=== PATIENT | male | born 1960 | race Caucasian/White ===

== ENCOUNTER → 2023-09-04 11:21 | Outpatient (REF) | payer OTHER, SELFPAY | LOC: DHCBC/DCA 11:21 | PROVIDERS: ATTENDING PHYSICIAN Internal Medicine Cardiovascular Disease; FAMILY PHYSICIAN Family Medicine | DX: I48.91 Unspecified atrial fibrillation (principal) | CPT/HCPCS: 78452; 93017; A9500 ==

== ENCOUNTER → 2023-10-06 22:00 | Outpatient (REF) | payer OTHER, SELFPAY | LOC: DHSLP 22:00 | PROVIDERS: ATTENDING PHYSICIAN Internal Medicine Cardiovascular Disease; FAMILY PHYSICIAN Family Medicine | DX: G47.33 Obstructive sleep apnea (adult) (pediatric) (principal) | CPT/HCPCS: 95800 ==

== ENCOUNTER 2025-03-19 01:58 | Emergency (ER) | payer OTHER, SELFPAY ==
[2025-03-19 02:00] VITALS: BP 138/82
[2025-03-19] MEDS: TORADOL 30 MG IV (02:45)
[2025-03-19] MEDS: ZOFRAN 4 MG IV (02:45)
[2025-03-19 02:47] LABS: Hematocrit 35.1 % (39.0-52.0); Hemoglobin 12.4 g/dL (13.0-18.0); Mean Corp Hgb Conc. 35.3 g/dL (33.0-37.0); Mean Corpuscular Volume 90.5 fL (80.0-94.0); Nucleated Red Blood Cells % 0 % (-); Platelet Count 190 10^3/uL (130-400); Red Cell Dist. Width 16.7 % (11.5-14.5)
--- NOTE | 2025-03-19 02:51 | ED.GENMED ---
History of Present Illness
<Rolf Huitron MD, Resident - Last Filed: 03/19/25 05:28>
General
Chief Complaint: Flank Pain
Source: patient and spouse
Time Seen by Provider: 03/19/25 02:30
History of Present Illness
History of Present Illness:
Patient is a 64-year-old male who presents to the emergency department with acute left abdominal and flank pain with several episodes of vomiting that started at 2330 this evening. He has a past medical history of stage IV thyroid cancer, atrial
fibrillation, hyperlipidemia, hiatal hernia, prostatic hypertrophy, and hypertension. The patient was in his normal state of health while attending a wedding before the symptoms began. He had not eaten or drink much but he did have a rum and coke.
Around the time that he was going to head home with his he started to have nausea and began to throw up. Along with the nausea and vomiting he has had abdominal pain that was located on the left side that radiated to his left flank. Once he
finished emptying his stomach contents he continued to dry heave in pain. He cannot recall the last time he urinated and states that the last time he urinated there was no foul odor or color to it. Of any shortness of breath, chest tightness, or
signs of syncope. Patient is visibly uncomfortable in the room and request for pain management in between bouts of nausea.
Past History
<Rolf Huitron MD, Resident - Last Filed: 03/19/25 05:28>
Past History
ED Past Medical History: Arrthythmia and Hypercholesterolemia
Social History
Tobacco: Non-smoker
Alcohol: None
Review of Systems
<Rolf Huitron MD, Resident - Last Filed: 03/19/25 05:28>
Review of Systems
Constitutional: Reports no symptoms
EENT: Reports no symptoms
Respiratory: Reports no symptoms
Cardiac: Reports no symptoms
ABD/GI: Reports abdominal pain (Left sided abdominal pain that radiates to the Left Flank) and vomiting
: Reports flank pain (Left sided abdominal pain that radiates to the Left Flank)
Musculoskeletal: Reports no symptoms
Skin: Reports no symptoms
Neurological: Reports no symptoms
Endocrine: Reports no symptoms
Hematologic/Lymphatic: Reports no symptoms
Psychiatric: Reports no symptoms
Phy Exam
<Rolf Huitron MD, Resident - Last Filed: 03/19/25 05:28>
General Physical Exam
General Presentation: severe distress
General age: appears stated age
General Skin: warm and dry
General Habitus: normal
General Mental: alert
General Hydration: appears well hydrated
Cardiovascular Exam
Cardiovascular Exam: regular rate/rhythm, no edema, no gallop, no JVD and no murmur
Pulmonary Exam
Pulmonary Exam: lungs clear, no respiratory distress, no rales, chest non tender, no crackles, no rhonchi, no stridor, no wheezing and no cough
Musculoskeletal Exam
Musculoskeletal Exam: full ROM
Skin Exam
Skin Exam: normal color, warm/dry, no rash and no petechia
Psychiatric Exam
Psychiatric Exam: normal mood/affect
Course
<Rolf Huitron MD, Resident - Last Filed: 03/19/25 05:28>
Orders/Labs/Results
Orders:
Orders
03/19/25 02:24
IV Insert/Care/Rem.- Treatment PRN
03/19/25 02:33
Complete Blood Count/With Diff Urgent
Comprehensive Metabolic Panel Urgent
Lipase Urgent
03/19/25 02:40
Ketorolac [Toradol] 30 mg IV NOW STA
Ondansetron Injectable [Zofran] 4 mg IV NOW STA
03/19/25 02:48
Bladder Scan- Treatment ONCE
03/19/25 02:57
CT Abd/pel Without Iv Or Oral Urgent
Comment:
Reason For Exam: L flank pain with nausea and vomiting
03/19/25 03:04
Urinalysis Reflex To Culture Urgent
Date Specimen was Collected: 03/19/25
Time Specimen was Collected: 02:24
Urine Microscopic Reflex Cult Urgent
Urine Culture Urgent
SAVI Source: U
Specimen Description:
Date Specimen was Collected: 03/19/25
Time Specimen was Collected: 02:24
03/19/25 03:24
0.9% Sodium Chloride 1000 ml [Nss] 1,000 ml IV BOLUS
HYDROmorphone [Dilaudid] 0.5 mg IV NOW STA
03/19/25 04:57
Oxycodone/Acetaminophen [Percocet 5/325] 1 tablet PO NOW STA
Abnormal Lab Results
03/19/25 03/19/25
02:33 03:04
RBC 3.88 L 10^6/uL
(4.70-6.10)
Hgb 12.4 L g/dL
(13.0-18.0)
Hct 35.1 L %
(39.0-52.0)
MCH 32.0 H pg
(27.0-31.0)
RDW 16.7 H %
(11.5-14.5)
Absolute Neuts (auto) 7.1 H 10^3/uL
(1.4-6.5)
Absolute Lymphs (auto) 0.4 L 10^3/uL
(1.2-3.4)
Neutrophils % 88.0 H %
(42.2-75.2)
Lymphocytes % 4.9 L %
(20.5-51.1)
BUN 21 H mg/dl
(9-20)
Glucose 138 H mg/dl
(70-99)
Urine Ketones 3+ A
(Negative)
Ur Occult Blood Reflex 4+ A
(Negative)
Leukocyte Esterase Rfl 1+ A
(Negative)
Urine RBC >100 A /HPF
(0-2)
Urine Albumin (Reflex) 3+ A
(Neg - Trace)
03/19/25 02:33
03/19/25 02:33
Vital Signs
Initial and Last Documented VS:
Initial Vital Signs
Pulse Resp BP Pulse Ox
98 26 138/82 98
03/19/25 02:00 03/19/25 02:00 03/19/25 02:00 03/19/25 02:00
Last Documented Vital Signs
Temp Pulse Resp BP Pulse Ox
98.7 F 82 16 114/76 95
03/19/25 04:41 03/19/25 04:41 03/19/25 04:41 03/19/25 04:41 03/19/25 04:41
<Masha Fallon DO - Last Filed: 03/19/25 07:41>
Orders/Labs/Results
Orders:
Orders
03/19/25 02:24
IV Insert/Care/Rem.- Treatment PRN
03/19/25 02:33
Complete Blood Count/With Diff Urgent
Comprehensive Metabolic Panel Urgent
Lipase Urgent
03/19/25 02:40
Ketorolac [Toradol] 30 mg IV NOW STA
Ondansetron Injectable [Zofran] 4 mg IV NOW STA
03/19/25 02:48
Bladder Scan- Treatment ONCE
03/19/25 02:57
CT Abd/pel Without Iv Or Oral Urgent
Comment:
Reason For Exam: L flank pain with nausea and vomiting
03/19/25 03:04
Urinalysis Reflex To Culture Urgent
Date Specimen was Collected: 03/19/25
Time Specimen was Collected: 02:24
Urine Microscopic Reflex Cult Urgent
Urine Culture Urgent
SAVI Source: U
Specimen Description:
Date Specimen was Collected: 03/19/25
Time Specimen was Collected: 02:24
03/19/25 03:24
0.9% Sodium Chloride 1000 ml [Nss] 1,000 ml IV BOLUS
HYDROmorphone [Dilaudid] 0.5 mg IV NOW STA
03/19/25 04:57
Oxycodone/Acetaminophen [Percocet 5/325] 1 tablet PO NOW STA
Abnormal Lab Results
03/19/25 03/19/25
02:33 03:04
RBC 3.88 L 10^6/uL
(4.70-6.10)
Hgb 12.4 L g/dL
(13.0-18.0)
Hct 35.1 L %
(39.0-52.0)
MCH 32.0 H pg
(27.0-31.0)
RDW 16.7 H %
(11.5-14.5)
Absolute Neuts (auto) 7.1 H 10^3/uL
(1.4-6.5)
Absolute Lymphs (auto) 0.4 L 10^3/uL
(1.2-3.4)
Neutrophils % 88.0 H %
(42.2-75.2)
Lymphocytes % 4.9 L %
(20.5-51.1)
BUN 21 H mg/dl
(9-20)
Glucose 138 H mg/dl
(70-99)
Urine Ketones 3+ A
(Negative)
Ur Occult Blood Reflex 4+ A
(Negative)
Leukocyte Esterase Rfl 1+ A
(Negative)
Urine RBC >100 A /HPF
(0-2)
Urine Albumin (Reflex) 3+ A
(Neg - Trace)
03/19/25 02:33
03/19/25 02:33
Vital Signs
Initial and Last Documented VS:
Initial Vital Signs
Pulse Resp BP Pulse Ox
98 26 138/82 98
03/19/25 02:00 03/19/25 02:00 03/19/25 02:00 03/19/25 02:00
Last Documented Vital Signs
Temp Pulse Resp BP Pulse Ox
98.7 F 82 16 114/76 95
03/19/25 04:41 03/19/25 04:41 03/19/25 04:41 03/19/25 04:41 03/19/25 04:41
<Rolf Huitron MD, Resident - Last Filed: 03/19/25 05:28>
*Pulse Oximetry
SaO2: 98
Oxygen Mode of Delivery: Room air
<Masha Fallon, DO - Last Filed: 03/19/25 07:41>
*Radiology
Radiology exam reviewed: radiology read reviewed
*Pulse Oximetry
Patient hypoxic: no
*Critical Care Note
Total Time (30-74mins, 75-104mins- exclusive of procedures): Not Applicable
<Rolf Huitron MD, Resident - Last Filed: 03/19/25 05:28>
Update Note
Update Note:
Problem List:
Left abdominal/flank pain
nausea and vomiting
Plan:
CBC and CMP
lipase
Toradol for analgesia
Zofran as antiemetic
bladder scan
CT abdomen and pelvis without IV or oral contrast
urine analysis with reflex to culture
Differential Diagnoses:
nephrolithiasis
pyelonephritis
UTI
pancreatitis
gastroenteritis
Radiology:
CT of the abdomen and pelvis without contrast ordered on 03/19/2025: Left hydronephrosis and hydroureter due to an obstructing 2 mm stone at the left ureterovesical junction.
EKG: Not applicable
Labs:
CBC notable for anemia with a hemoglobin of 12.4, and a neutrophil percentile of 88%
CMP unremarkable
lipase within normal limits
urinalysis with 3+ ketones, 4+ occult blood, 1+ leukocyte esterase, greater than 100 urine RBCs per high-powered field, and calcium oxalate crystals present
Updates:
based on history, physical exam and imaging findings the patient has hydroureter secondary to nephrolithiasis of the left ureter
stone is 2 mm in size which should be able to be passed within the urine.
Patient much more comfortable after receiving ketolorac
patient given Dilaudid and pain has greatly improved
Patient will be sent home with prescription for analgesia and antiemetic.
Patient should follow-up with his primary care provider within 1 week following discharge.
Patient would like to be discharged from the emergency department. There are no barriers that would impede the patient from being safely discharged at the present time.
ED Attending Note
<Rolf Huitron MD, Resident - Last Filed: 03/19/25 05:28>
-
Portions of this chart may have been created with voice recognition software.� Occasional wrong word or��sound alike� substitutions may have occurred due to the inherent limitations of voice recognition software.
<Masha Fallon DO - Last Filed: 03/19/25 07:41>
ED Attending Note
Patient seen and examined by attending physician: Yes
I performed a history and physical exam of patient and discussed management with resident, I reviewed resident's note and agree with documented findings and plan of care.: Yes
ED Attending Note:
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 Follows with oncologist at [facility] and has undergone local radiation to his
thoracic spine and right hip as well as surgical excision of both.
The patient reports experiencing a sudden onset of intense left back/flank pain that radiates to his left lower quadrant. No history of similar episodes of pain. 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 Associated with nausea
and several episodes of dry heaves. The patient denies experiencing any testicular pain. Fever and or chills. No dysuria and urgency and or hematuria.
He admits to feeling restless, unable to find a comfortable position.
Currently much more comfortable after an IV dose of Toradol and Zofran.
64-year-old gentleman appears his stated age, bright and alert, pleasant, appears in no acute distress.
Heart is regular rate and rhythm.
Lungs are clear to auscultation.
Abdomen is soft without appreciable tenderness. There is mild left CVA tenderness to percussion.
The Differential Diagnosis includes, in no particular order and is not limited to:
1. Metastatic bone pain
2. Vertebral fracture
3. Nephrolithiasis (kidney stone)
4. Spinal cord compression
5. Soft tissue invasion by carcinoma
6. Post-operative pain
7. Musculoskeletal pain due to cancer replacement
8. Pain related to cancer treatment side effects
9. Acute kidney injury
10. Infection or abscess related to surgery
Labs are unremarkable.
Urinalysis is pending.
Will plan for CT abdomen pelvis.
Will give an IV dose of Dilaudid for pain.
04:50
Patient is near pain-free after IV Dilaudid, overall resting comfortably, no return of nausea.
CAT scan shows a 2 mm stone left UVJ with mild hydronephrosis.
Urinalysis shows microscopic hematuria. No evidence of infection.
Will discharge to home with a prescription for Percocet for as needed pain, Zofran for as needed nausea and a short course of Flomax.
Discussed importance of staying well-hydrated on a daily basis.
Follow-up with urology especially if stone has not passed within the next week.
Return precautions discussed.
Discharge Plan
Departure
Patient Disposition: Home (Routine Discharge)
Date of Disposition: 03/19/25
Time of Disposition: 04:50
Patient with high blood pressure during this ER visit?: No
Condition: Good
Discharge Problem:
Calculus of distal left ureter
Instructions: Kidney Stones (DC), Flank Pain (DC), How to Strain Your Urine
Prescriptions:
New
tamsulosin [Flomax] 0.4 mg capsule
0.4 mg PO DAILY Qty: 7 0RF
ondansetron 4 mg tablet,disintegrating
4 mg PO TIDPRN PRN (Reason: nausea/vomiting) Qty: 18 0RF
oxycodone-acetaminophen [Percocet] 5-325 mg Tablet
1 tab PO Q4HPRN PRN (Reason: pain) Qty: 6 0RF
No Action
citalopram 20 mg Tablet
20 mg PO QPM
Eliquis 5 mg Tablet
5 mg PO BID
metoprolol succinate [Toprol XL] 25 mg tablet extended release 24 hr
25 mg PO HS
atorvastatin 40 mg Tablet
40 mg PO DAILY
magnesium Tablet
1 tab PO DAILY
Referrals:
René Hirsch MD [Family Provider]
Sachin Aguayo MD [Active, Urology] - As needed
Interventions
Interventions:
*Risk Screen - Suicide Last Done: 03/19/25 02:00
*General Assessment Last Done: 03/19/25 03:14
*Neglect/Abuse Screening Last Done: 03/19/25 02:00
*ED- Fall Risk Assessment Last Done: 03/19/25 03:14
*ED COVID-19 Vaccine History Last Done: 03/19/25 03:14
*Nursing Disposition Last Done: 03/19/25 05:09
IO-Ilandz-Nqlqiuqevx Assessment Last Done: 03/19/25 03:14
ED-Male Genitourinary Assessment Last Done: 03/19/25 03:14
Discharge Date and Time
Discharge Date/Time: 03/19/25 05:15
Print Language: EQUATORIAL GUINEAN
[2025-03-19 03:01] LABS: ALT (SGPT) 35 U/L (0-50); AST (SGOT) 34 U/L (17-59); Albumin 4.0 g/dl (3.5-5.0); Alkaline Phosphatase 113 U/L (38-126); Blood Urea Nitrogen 21 mg/dl (9-20); Calcium 10.2 mg/dl (8.4-10.2); Carbon Dioxide 23 mmol/L (22-30); Chloride 105 mmol/L (98-107); Glucose 138 mg/dl (70-99); Lipase 113 U/L (23-300); Potassium 3.9 mmol/L (3.5-5.1); Sodium 136 mmol/L (135-145); Total Protein 6.3 g/dl (6.3-8.2); eGFR > 60.00
[2025-03-19 03:10] LABS: Urine Character Slightly Cloudy (Clear)
[2025-03-19 03:18] LABS: Urine Red Blood Cell >100 /HPF (0-2); Urine Squamous Cell None seen /LPF (Few)
[2025-03-19] MEDS: DILAUDID 0.5 MG IV (03:44)
[2025-03-19] MEDS: NSS 1000 IV (03:44)
[2025-03-19 04:41] VITALS: BP 114/76
[2025-03-19] MEDS: PERCOCET 5/325 1 TABLET PO (05:00)
== END 2025-03-19 05:15 | disposition home or self-care (01) ==
LOC: EMR 01:58
PROVIDERS: EMERGENCY PHYSICIAN Emergency Medicine; FAMILY PHYSICIAN Internal Medicine
DX: N13.2 Hydronephrosis with renal and ureteral calculous obstruction (principal); D64.9 Anemia, unspecified; I48.91 Unspecified atrial fibrillation; I10 Essential (primary) hypertension; E78.00 Pure hypercholesterolemia, unspecified; N40.0 Benign prostatic hyperplasia without lower urinary tract symptoms; K44.9 Diaphragmatic hernia without obstruction or gangrene; Z85.850 Personal history of malignant neoplasm of thyroid; Z85.830 Personal history of malignant neoplasm of bone
CPT/HCPCS: 99284; 96374; 96375 ×2; 96361; 74176; 80053; 81003; 81015; 83690; 85025; 87086

== ENCOUNTER → 2025-03-23 16:42 | Outpatient (REF) | payer OTHER, SELFPAY | LOC: RCS 16:42 | PROVIDERS: ATTENDING PHYSICIAN Internal Medicine Cardiovascular Disease; FAMILY PHYSICIAN Family Medicine | DX: I48.0 Paroxysmal atrial fibrillation (principal) | CPT/HCPCS: 93306; 93356 ==

== ENCOUNTER → 2025-06-22 07:35 | Outpatient (REF) | payer OTHER, SELFPAY | LOC: DHSLP 07:35 | PROVIDERS: ATTENDING PHYSICIAN Internal Medicine; FAMILY PHYSICIAN Family Medicine | DX: G47.33 Obstructive sleep apnea (adult) (pediatric) (principal) | CPT/HCPCS: 95800 ==